=== PATIENT | female | born 1990 | race Caucasian/White ===

== ENCOUNTER 2017-03-03 16:04 | Emergency (ER) | payer OTHER ==
[~2017-03-03] VITALS: Ht 157.5 cm; Wt 68.0 kg
[2017-03-03 16:16] VITALS: BP 138/76
--- NOTE | 2017-03-03 19:38 | NUR ---
PT TAKEN TO OF
[2017-03-03 20:35] VITALS: BP 131/72
--- NOTE | 2017-03-03 20:35 | NUR ---
Patient discharged with v/s stable. Written and verbal after care instructions given and explained. Patient alert, oriented and verbalized understanding of instructions. Ambulatory with steady gait. All questions addressed prior to discharge. ID band removed. Patient advised to follow up with PMD. Rx of TYLON given. Patient educated on indication of medication including possible reaction and side effects. Opportunity to ask questions provided and answered.
== END 2017-03-03 20:35 | disposition home or self-care (01) ==
LOC: MED 16:04
DX: O20.9 Hemorrhage in early pregnancy, unspecified (principal); R03.0 Elevated blood-pressure reading, without diagnosis of hypertension; Z3A.01 Less than 8 weeks gestation of pregnancy
CPT/HCPCS: 36415; 76817; 81001; 84702; 85025; 86900; 86901; 99285; Q0092